=== PATIENT | female | born 2000 | race Hispanic/Latino ===

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

== ENCOUNTER 2021-01-24 19:50 | Emergency (ER) | payer OTHER ==
[~2021-01-24 19:50] MED LIST changes: +PRENATAL1 TA1
[2021-01-24 23:06] LABS: HEMATOCRIT 31.9 % (37.0-47.0); IMMATURE GRANULOCYTES 1.3 % (0.0-5.0); MEAN CELL VOLUME 81.8 fL CALC (80.0-100.0); MEAN CORPUSCULAR HGB 25.6 pG CALC (26.0-32.0); MEAN CORPUSCULAR HGB CONC 31.3 g/dL CAL (32.0-36.0); NEUT# 9.6 thou/uL (2.00-7.15); RED BLOOD COUNT 3.9 mill/uL (4.20-5.60); RED CELL DISTRI WIDTH 14.4 % (11.5-15.5)
[2021-01-24 23:14] LABS: URINE BILIRUBIN - DIPSTICK NEGATIVE (NEGATIVE); URINE BLOOD DIPSTICK NEGATIVE (NEGATIVE); URINE COLOR YELLOW; URINE GLUCOSE - DIPSTICK NEGATIVE (NEGATIVE); URINE KETONE NEGATIVE (NEGATIVE); URINE LEUK ESTERASE NEGATIVE (NEGATIVE); URINE PH 6.5 (4.5-8.0); URINE PROTEIN - DIPSTICK NEGATIVE (NEG-TRACE); URINE SPECIFIC GRAVITY 1.025; URINE UROBILINOGEN - DIPSTICK 0.2 E.U./dL (0.2)
[2021-01-24 23:19] LABS: ALBUMIN 3.4 g/dL (3.2-5.0); ALKALINE PHOSPHATASE 74 u/l (38-126); ANION GAP 12 (6-22 (CALC)); BUN 7 mg/dL (8-21); BUN/CREATININE RATIO 17 (12-20 (CALC)); CARBON DIOXIDE 20 mmol/l (22-30); CHLORIDE 107 mmol/l (95-108); CREATININE 0.4 mg/dL (0.5-1.0); GFR > 60 ML/MIN (>=60 (CALC)); GFR FOR AFR.AMER. > 60 ML/MIN (>=60 (CALC)); LIPASE 75 u/l (23-300); SGOT/AST 20 u/l (14-36); SODIUM 135 mmol/l (137-146); TOTAL PROTEIN 6.6 g/dL (6.3-8.2)
[2021-01-24 23:22] LABS: URINE NITRITE - DIPSTICK NEGATIVE (Negative)
[2021-01-24 23:28] LABS: BILIRUBIN, TOTAL 0.1 mg/dL (0.0-1.4)
[2021-01-25 03:01] VITALS: BP 119/48
== END 2021-01-25 03:06 ==
LOC: ED 19:50
PROVIDERS: Emergency Medicine
DX: O26.892 Other specified pregnancy related conditions, second trimester (principal); R10.30 Lower abdominal pain, unspecified; R51.9 Headache, unspecified; F41.9 Anxiety disorder, unspecified; Z86.16 Personal history of COVID-19; Z3A.26 26 weeks gestation of pregnancy; N39.0 Urinary tract infection, site not specified

== ENCOUNTER 2021-07-01 19:12 | Emergency (ER) | payer OTHER ==
[~2021-07-01] VITALS: Ht 152.4 cm; Wt 132.0 kg
[2021-07-01 23:30] LABS: URINE BILIRUBIN - DIPSTICK NEGATIVE (NEGATIVE); URINE BLOOD DIPSTICK NEGATIVE (NEGATIVE); URINE CLARITY CLEAR; URINE COLOR YELLOW; URINE GLUCOSE - DIPSTICK NEGATIVE (NEGATIVE); URINE KETONE NEGATIVE (NEGATIVE); URINE LEUK ESTERASE NEGATIVE (Negative); URINE NITRITE - DIPSTICK NEGATIVE (Negative); URINE PROTEIN - DIPSTICK NEGATIVE (NEG-TRACE); URINE SPECIFIC GRAVITY >=1.030; URINE UROBILINOGEN - DIPSTICK 0.2 E.U./dL (0.2)
[2021-07-02 01:20] VITALS: BP 131/71
== END 2021-07-02 01:20 | disposition home or self-care (01) ==
LOC: ED 19:12
PROVIDERS: Emergency Medicine
DX: R10.2 Pelvic and perineal pain (principal); F41.9 Anxiety disorder, unspecified; Z86.16 Personal history of COVID-19

== ENCOUNTER 2021-08-18 09:09 | Emergency (ER) | payer OTHER ==
[~2021-08-18] VITALS: Ht 152.4 cm; Wt 137.3 kg
[2021-08-18 09:55] LABS: HEMATOCRIT 31.6 % (37.0-47.0); HEMOGLOBIN 9.8 g/dl (12.0-16.0); IMMATURE GRANULOCYTES 0.4 % (0.0-5.0); MEAN CORPUSCULAR HGB 22.4 pG CALC (26.0-32.0); NEUT# 7.76 thou/uL (2.00-7.15); RED BLOOD COUNT 4.38 mill/uL (4.20-5.60); RED CELL DISTRI WIDTH 15.5 % (11.5-15.5)
[2021-08-18 09:57] LABS: MEAN CELL VOLUME 72.1 fL CALC (80.0-100.0)
[2021-08-18 09:58] LABS: URINE BILIRUBIN - DIPSTICK NEGATIVE (NEGATIVE); URINE BLOOD DIPSTICK LARGE (NEGATIVE); URINE COLOR YELLOW; URINE GLUCOSE - DIPSTICK NEGATIVE (NEGATIVE); URINE KETONE NEGATIVE (NEGATIVE); URINE LEUK ESTERASE NEGATIVE (NEGATIVE); URINE PROTEIN - DIPSTICK TRACE mg/dL (NEG-TRACE); URINE SPECIFIC GRAVITY >=1.030; URINE UROBILINOGEN - DIPSTICK 0.2 E.U./dL (0.2)
[2021-08-18 10:01] LABS: URINE NITRITE - DIPSTICK NEGATIVE (Negative)
[2021-08-18 10:07] LABS: URINE WBC 0-2 WBC/hpf (0-5)
[2021-08-18 10:08] LABS: URINE SQUAMOUS EPITHELIAL CELL FEW EPI/hpf (0-FEW)
[2021-08-18 10:14] LABS: ALKALINE PHOSPHATASE 77 u/l (38-126); ANION GAP 15 (6-22 (CALC)); BUN 10 mg/dL (7-17); BUN/CREATININE RATIO 22 (12-20 (CALC)); CARBON DIOXIDE 20 mmol/l (22-30); CHLORIDE 105 mmol/l (95-108); CREATININE 0.5 mg/dL (0.5-1.0); GFR > 60 ML/MIN (>=60 (CALC)); GFR FOR AFR.AMER. > 60 ML/MIN (>=60 (CALC)); POTASSIUM 3.9 mmol/l (3.5-5.1); SODIUM 137 mmol/l (137-146); TOTAL PROTEIN 7.4 g/dL (6.3-8.2)
[2021-08-18 10:22] LABS: BILIRUBIN, TOTAL 0.5 mg/dL (0.0-1.4); SGOT/AST 66 u/l (14-36)
[2021-08-18 10:55] LABS: BETA-HCG, QUANT(RESULT NUMBER) 64746 mIU/mL
[2021-08-18 11:42] VITALS: BP 117/76
== END 2021-08-18 11:42 | disposition home or self-care (01) ==
LOC: ED 09:09
DX: O46.91 Antepartum hemorrhage, unspecified, first trimester (principal); Z3A.08 8 weeks gestation of pregnancy; Z86.16 Personal history of COVID-19

== ENCOUNTER 2022-03-29 15:38 | Emergency (ER) | payer OTHER ==
[~2022-03-29] VITALS: Ht 152.4 cm; Wt 141.0 kg
[2022-03-29 16:31] LABS: HEMATOCRIT 27.2 % (37.0-47.0); IMMATURE GRANULOCYTES 0.6 % (0.0-5.0); MEAN CELL VOLUME 77.9 fL CALC (80.0-100.0); MEAN CORPUSCULAR HGB 22.9 pG CALC (26.0-32.0); MEAN CORPUSCULAR HGB CONC 29.4 g/dL CAL (32.0-36.0); NEUT# 8.5 thou/uL (2.00-7.15); RED BLOOD COUNT 3.49 mill/uL (4.20-5.60); RED CELL DISTRI WIDTH 19.9 % (11.5-15.5)
[2022-03-29 16:42] LABS: ALBUMIN 3.8 g/dL (3.2-5.0); ALKALINE PHOSPHATASE 99 u/l (38-126); ANION GAP 13 (6-22 (CALC)); BILIRUBIN, TOTAL 0.3 mg/dL (0.0-1.4); BUN 8 mg/dL (7-17); BUN/CREATININE RATIO 15 (12-20 (CALC)); CARBON DIOXIDE 23 mmol/l (22-30); CHLORIDE 108 mmol/l (95-108); CREATININE 0.5 mg/dL (0.5-1.0); GFR FOR AFR.AMER. > 60 ML/MIN (>=60 (CALC)); GFR OTHER RACES > 60 ML/MIN (>=60 (CALC)); POTASSIUM 3.4 mmol/l (3.5-5.1); SGOT/AST 60 u/l (14-36); SODIUM 141 mmol/l (137-146); TOTAL PROTEIN 7.2 g/dL (6.3-8.2)
[2022-03-29] MEDS ORDERED: ZOFRAN4 MG/TAB PO (16:55)
[2022-03-29 16:59] VITALS: BP 148/71
[2022-03-30] MEDS ORDERED: CEPHALEXIN500 MG PO (17:46)
== END 2022-03-29 17:18 | disposition home or self-care (01) ==
LOC: ED 15:38
PROVIDERS: Family Medicine
DX: O90.0 Disruption of cesarean delivery wound (principal); Z86.16 Personal history of COVID-19

== ENCOUNTER 2022-07-07 07:56 | Observation (INO) | payer OTHER ==
[~2022-07-07] VITALS: Ht 152.4 cm; Wt 142.8 kg
[~2022-07-07 07:56] MED LIST changes: +CEPHALEXIN500 MG PO; +ZOFRAN4 MG/TAB PO
[2022-07-07 08:17] VITALS: BP 146/68
[2022-07-07 08:30] LABS: URINE BILIRUBIN - DIPSTICK NEGATIVE (NEGATIVE); URINE BLOOD DIPSTICK NEGATIVE (NEGATIVE); URINE COLOR YELLOW; URINE GLUCOSE - DIPSTICK NEGATIVE (NEGATIVE); URINE KETONE TRACE mg/dL (NEGATIVE); URINE LEUK ESTERASE NEGATIVE (NEGATIVE); URINE PROTEIN - DIPSTICK 30 mg/dL (NEG-TRACE); URINE SPECIFIC GRAVITY >=1.030; URINE UROBILINOGEN - DIPSTICK 0.2 E.U./dL (0.2)
[2022-07-07 08:31] LABS: URINE NITRITE - DIPSTICK NEGATIVE (Negative)
[2022-07-07 08:32] LABS: BASO% 0.3 % (0-3); EOS% 5.5 % (0-8); HEMATOCRIT 36.9 % (37.0-47.0); IMMATURE GRANULOCYTES 0.4 % (0.0-5.0); MEAN CELL VOLUME 77.2 fL CALC (80.0-100.0); MEAN CORPUSCULAR HGB 25.1 pG CALC (26.0-32.0); MEAN CORPUSCULAR HGB CONC 32.5 g/dL CAL (32.0-36.0); NEUT# 5.83 thou/uL (2.00-7.15); NEUT% 49.8 % (42-76); RED BLOOD COUNT 4.78 mill/uL (4.20-5.60); RED CELL DISTRI WIDTH 14.5 % (11.5-15.5)
[2022-07-07 08:42] LABS: URINE SQUAMOUS EPITHELIAL CELL FEW EPI/hpf (0-FEW)
[2022-07-07 08:43] VITALS: BP 116/61
[2022-07-07 08:48] LABS: ALBUMIN 4.3 g/dL (3.2-5.0); ALKALINE PHOSPHATASE 131 u/l (38-126); ANION GAP 11 (6-22 (CALC)); BILIRUBIN, TOTAL 0.2 mg/dL (0.0-1.4); BUN 11 mg/dL (7-17); BUN/CREATININE RATIO 23 (12-20 (CALC)); CARBON DIOXIDE 24 mmol/l (22-30); CHLORIDE 106 mmol/l (95-108); CREATININE 0.5 mg/dL (0.5-1.0); GFR FOR AFR.AMER. > 60 ML/MIN (>=60 (CALC)); GFR OTHER RACES > 60 ML/MIN (>=60 (CALC)); LIPASE 179 u/l (23-300); SGOT/AST 92 u/l (14-36); SODIUM 137 mmol/l (137-146)
[2022-07-07 11:38] VITALS: BP 125/82
[2022-07-07 14:38] VITALS: BP 116/58
[2022-07-07 19:18] VITALS: BP 121/67
[2022-07-08] VITALS (8 sets, daily range): BP systolic 119–179; BP diastolic 65–71
[2022-07-08] MEDS ORDERED: PERCOCET 5/325M1 TAB PO (09:59)
== END 2022-07-08 13:48 | disposition home or self-care (01) ==
LOC: ED 07:56 → ED-I 10:31 → ED 10:42 → MS2 10:43
PROVIDERS: Family Medicine; ADMIT Surgery; ATTEND Surgery
DX: K80.12 Calculus of gallbladder with acute and chronic cholecystitis without obstruction (principal); F41.9 Anxiety disorder, unspecified; E66.01 Morbid (severe) obesity due to excess calories; Z68.44 Body mass index [BMI] 60.0-69.9, adult; Z86.16 Personal history of COVID-19
CPT/HCPCS: G0378; J0131; J1100

== ENCOUNTER 2022-08-08 23:29 | Emergency (ER) | payer OTHER ==
[~2022-08-08] VITALS: Ht 152.4 cm; Wt 145.8 kg
[~2022-08-08 23:29] MED LIST changes: +PERCOCET 5/325M1 TAB PO
[2022-08-08 23:47] VITALS: BP 148/83
[2022-08-09] VITALS: BP 131/79
[2022-08-09 00:15] VITALS: BP 142/77
[2022-08-09] MEDS ORDERED: KEFLEX500 MG PO (00:29)
[2022-08-09 00:30] VITALS: BP 133/80
[2022-08-09 00:45] VITALS: BP 123/71
[2022-08-09 00:55] VITALS: BP 123/71
== END 2022-08-09 00:50 | disposition home or self-care (01) ==
LOC: ED 23:29
DX: L08.9 Local infection of the skin and subcutaneous tissue, unspecified (principal); F41.9 Anxiety disorder, unspecified; Z86.16 Personal history of COVID-19

== ENCOUNTER 2023-05-01 17:16 | Emergency (ER) | payer OTHER ==
[2023-05-01] VITALS (10 sets, daily range): BP systolic 110–146; BP diastolic 54–81
[~2023-05-01] VITALS: Ht 152.4 cm; Wt 145.1 kg
[~2023-05-01 17:16] MED LIST changes: +KEFLEX500 MG PO
[2023-05-01 19:54] LABS: BASO% 0.3 % (0-3); EOS% 5.7 % (0-8); HEMATOCRIT 39.6 % (37.0-47.0); HEMOGLOBIN 12.4 g/dl (12.0-16.0); IMMATURE GRANULOCYTES 0.4 % (0.0-5.0); LYMPH% 24.7 % (15-41); MEAN CELL VOLUME 80.7 fL CALC (80.0-100.0); MEAN CORPUSCULAR HGB 25.3 pG CALC (26.0-32.0); MEAN CORPUSCULAR HGB CONC 31.3 g/dL CAL (32.0-36.0); NEUT# 9.14 thou/uL (2.00-7.15); NEUT% 63.9 % (42-76); RED BLOOD COUNT 4.91 mill/uL (4.20-5.60); RED CELL DISTRI WIDTH 14.2 % (11.5-15.5)
[2023-05-01] MEDS ORDERED: AMOX/K CLAV875 M1 PO (21:11)
[2023-05-01] MEDS ORDERED: VENTOLIN HFA IN (21:11)
== END 2023-05-01 21:23 | disposition home or self-care (01) ==
LOC: ED 17:16
PROVIDERS: Family Medicine
DX: J01.90 Acute sinusitis, unspecified (principal); J45.909 Unspecified asthma, uncomplicated; F41.9 Anxiety disorder, unspecified; E66.01 Morbid (severe) obesity due to excess calories; Z68.44 Body mass index [BMI] 60.0-69.9, adult; Z20.822 Contact with and (suspected) exposure to COVID-19; Z86.16 Personal history of COVID-19

== ENCOUNTER 2023-12-28 21:54 | Emergency (ER) | payer OTHER ==
[~2023-12-28] VITALS: Ht 152.4 cm; Wt 145.0 kg
[~2023-12-28 21:54] MED LIST changes: +NAPROXEN500 MG PO
[2023-12-28] MEDS ORDERED: ACETAMINOPHEN 500 MG TAB PO ONE (22:25)
[2023-12-28] MEDS ORDERED: CYCLOBENZAPRINE HCL 5 MG TAB PO ONE (22:25)
[2023-12-28] MEDS ORDERED: DICLOFENAC SODIUM 75 MG/TAB PO ONE (22:25)
[2023-12-28 22:33] LABS: URINE BILIRUBIN - DIPSTICK Negative (NEGATIVE); URINE BLOOD DIPSTICK Trace-intact (NEGATIVE); URINE COLOR Yellow; URINE GLUCOSE - DIPSTICK Negative (NEGATIVE); URINE KETONE Negative (NEGATIVE); URINE LEUK ESTERASE Negative (NEGATIVE); URINE NITRITE - DIPSTICK Negative (Negative); URINE PH 5.5 (4.5-8.0); URINE PROTEIN - DIPSTICK Negative (NEG-TRACE); URINE SPECIFIC GRAVITY 1.025; URINE UROBILINOGEN - DIPSTICK 0.2 E.U./dL (0.2)
[2023-12-28] MEDS ORDERED: VOLTAREN - GENE75 MG PO (23:46)
[2023-12-29 00:15] VITALS: BP 150/87
== END 2023-12-29 00:15 | disposition home or self-care (01) ==
LOC: ED 21:54
PROVIDERS: Family Medicine
DX: S39.012A Strain of muscle, fascia and tendon of lower back, initial encounter (principal); F41.9 Anxiety disorder, unspecified; X58.XXXA Exposure to other specified factors, initial encounter

== ENCOUNTER 2023-12-30 22:07 | Emergency (ER) | payer OTHER ==
[~2023-12-30] VITALS: Ht 152.4 cm; Wt 148.0 kg
[~2023-12-30 22:07] MED LIST changes: +VOLTAREN - GENE75 MG PO
[2023-12-30] MEDS ORDERED: IPRATROPIUM-Albuterol 0.5MG-2.5MG/3 ML NEB ONE (23:10)
[2023-12-30] MEDS ORDERED: DEXAMETHASONE 2 MG/TAB TAB PO ONE (23:10)
[2023-12-30] MEDS ORDERED: ACETAMINOPHEN 500 MG TAB PO ONE (23:15)
[2023-12-30] MEDS ORDERED: KETOROLAC TROMETHAMINE 30 MG/ML SDV IV ONE (23:15)
[2023-12-30 23:39] LABS: BASO% 0.4 % (0-3); HEMATOCRIT 32.9 % (37.0-47.0); IMMATURE GRANULOCYTES 0.9 % (0.0-5.0); LYMPH% 28.1 % (15-41); MEAN CELL VOLUME 77.6 fL CALC (80.0-100.0); MEAN CORPUSCULAR HGB 23.6 pG CALC (26.0-32.0); MEAN CORPUSCULAR HGB CONC 30.4 g/dL CAL (32.0-36.0); MONO% 4.1 % (2-13); NEUT# 6.6 thou/uL (2.00-7.15); NEUT% 62.5 % (42-76); RED BLOOD COUNT 4.24 mill/uL (4.20-5.60); RED CELL DISTRI WIDTH 14.7 % (11.5-15.5)
[2023-12-30 23:57] LABS: ALBUMIN 4.1 g/dL (3.2-5.0); ALKALINE PHOSPHATASE 67 u/l (38-126); ANION GAP 7 (6-22 (CALC)); BILIRUBIN, TOTAL 0.6 mg/dL (0.02-1.3); BUN 11 mg/dL (7-17); BUN/CREATININE RATIO 13 (12-20 (CALC)); CARBON DIOXIDE 28 mmol/l (22-30); CHLORIDE 107 mmol/l (95-108); CPK 102 u/l (30-135); CREATININE 0.8 mg/dL (0.5-1.0); ESTIMATED GFR 107 ML/MIN (>=90 (CALC)); MAGNESIUM 1.6 mg/dL (1.6-2.3); POTASSIUM 3.6 mmol/l (3.5-5.1); SGOT/AST 99 u/l (14-36); SODIUM 139 mmol/l (137-146); TOTAL PROTEIN 7.9 g/dL (6.3-8.2)
[2023-12-31 00:01] LABS: INTERNATIONAL NORMALIZED RATIO 1.2 RATIO (0.7-1.3)
[2023-12-31 00:08] LABS: PROTHROMBIN TIME 10.9 SECONDS (9.0-12.5)
[2023-12-31 00:19] LABS: D-DIMER 0.4 mg/L (0.19-0.60)
[2023-12-31 03:56] LABS: URINE BLOOD DIPSTICK Trace-intact (NEGATIVE); URINE GLUCOSE - DIPSTICK Negative (NEGATIVE); URINE KETONE Trace mg/dL (NEGATIVE); URINE LEUK ESTERASE Negative (NEGATIVE); URINE PH 5.5 (4.5-8.0); URINE PROTEIN - DIPSTICK Trace mg/dL (NEG-TRACE); URINE SPECIFIC GRAVITY 1.025; URINE UROBILINOGEN - DIPSTICK 0.2 E.U./dL (0.2)
[2023-12-31 04:02] LABS: URINE COLOR Yellow; URINE NITRITE - DIPSTICK Positive (Negative)
[2023-12-31 04:15] LABS: URINE BACTERIA MANY hpf; URINE RBC 0-2 RBC/hpf (0-5); URINE SQUAMOUS EPITHELIAL CELL FEW EPI/hpf (0-FEW)
[2023-12-31 04:24] VITALS: BP 125/68
== END 2023-12-31 04:24 | disposition home or self-care (01) ==
LOC: ED 22:07
PROVIDERS: Internal Medicine
DX: R10.13 Epigastric pain (principal); R07.9 Chest pain, unspecified; F41.9 Anxiety disorder, unspecified; Z20.822 Contact with and (suspected) exposure to COVID-19; R82.71 Bacteriuria; R06.2 Wheezing

== ENCOUNTER 2024-06-25 05:14 | Emergency (ER) | payer OTHER ==
[~2024-06-25] VITALS: Ht 152.4 cm; Wt 102.0 kg
[2024-06-25] VITALS (10 sets, daily range): BP systolic 103–139; BP diastolic 50–76
[2024-06-25] MEDS ORDERED: SODIUM CHLORIDE 0.9% 1,000 ML IV STA (05:35)
[2024-06-25] MEDS ORDERED: PROMETHAZINE HCL 25 MG/ML AMP IV ONE (05:40)
[2024-06-25] MEDS ORDERED: KETOROLAC TROMETHAMINE 30 MG/ML SDV IV ONE (05:40)
[2024-06-25 06:02] LABS: BASO% 0.5 % (0-3); HEMATOCRIT 35.7 % (37.0-47.0); HEMOGLOBIN 11.1 g/dl (12.0-16.0); IMMATURE GRANULOCYTES 0.3 % (0.0-5.0); LYMPH% 23.8 % (15-41); MEAN CELL VOLUME 76.9 fL CALC (80.0-100.0); MEAN CORPUSCULAR HGB 23.9 pG CALC (26.0-32.0); MEAN CORPUSCULAR HGB CONC 31.1 g/dL CAL (32.0-36.0); MONO% 4.4 % (2-13); NEUT# 8.02 thou/uL (2.00-7.15); RED BLOOD COUNT 4.64 mill/uL (4.20-5.60); RED CELL DISTRI WIDTH 13.7 % (11.5-15.5)
[2024-06-25 06:33] LABS: ALBUMIN 4.5 g/dL (3.2-5.0); BILIRUBIN, TOTAL 0.6 mg/dL (0.02-1.3); CREATININE 0.7 mg/dL (0.5-1.0); POTASSIUM 3.9 mmol/l (3.5-5.1); TOTAL PROTEIN 8.2 g/dL (6.3-8.2)
[2024-06-25] MEDS ORDERED: LACTATED RINGER'S 1,000 ML IV ONE (07:00)
[2024-06-25 08:26] LABS: URINE BILIRUBIN - DIPSTICK Negative (NEGATIVE); URINE BLOOD DIPSTICK Negative (NEGATIVE); URINE GLUCOSE - DIPSTICK Negative (NEGATIVE); URINE KETONE Negative (NEGATIVE); URINE LEUK ESTERASE Negative (NEGATIVE); URINE NITRITE - DIPSTICK Negative (Negative); URINE PH 5.5 (4.5-8.0); URINE PROTEIN - DIPSTICK Trace mg/dL (NEG-TRACE); URINE SPECIFIC GRAVITY 1.025; URINE UROBILINOGEN - DIPSTICK 0.2 E.U./dL (0.2)
[2024-06-25 08:30] LABS: URINE COLOR Yellow
[2024-06-25] MEDS ORDERED: PROTONIX40 M2 PO (08:34)
== END 2024-06-25 08:51 | disposition home or self-care (01) ==
LOC: ED 05:14
PROVIDERS: Family Medicine
DX: R10.11 Right upper quadrant pain (principal); R10.13 Epigastric pain; R11.0 Nausea; Z20.822 Contact with and (suspected) exposure to COVID-19
CPT/HCPCS: J2550; Q9967